=== PATIENT | male | born 1975 | race Caucasian/White ===

== ENCOUNTER 2017-06-28 12:28 | Emergency (ER) | payer OTHER ==
[2017-06-28 12:34] VITALS: BP 142/82; PULSE 78; RESP 20; TEMP 98.3; O2SAT 96
--- NOTE | 2017-06-28 13:08 | C.PDOC ---
History Of Present Illness 41 y/o male presents to the ED for evaluation of left leg, and left ankle pain. Patient states he fell off while getting off the bus 15 days ago, also tripped and fell again 3 days ago injuring his left leg. Pain aggravated by movement. Notes being seen by PMD, Dr. Bazan, who prescribed Aspirin which patient took without any improvement. Otherwise, denies any sensory changes, laceration, head injury, fever, dizziness, unsteady gait or any other associated symptoms at this time. Time Seen by Provider: 06/28/17 12:38 Chief Complaint (Nursing): Lower Extremity Problem/Injury History Per: Patient History/Exam Limitations: no limitations Onset/Duration Of Symptoms: Days (15) Current Symptoms Are (Timing): Still Present Recent travel outside of the [place]: No Additional History Per: Patient - Knee Description Of Injury: Fell - Ankle/Foot Description Of Injury: Fell. denies: Struck With Object, Laceration Past Medical History Reviewed: Historical Data, Nursing Documentation, Vital Signs Vital Signs: Last Vital Signs Temp 98.3 F 06/28/17 12:34 Pulse 78 06/28/17 12:34 Resp 20 06/28/17 12:34 BP 142/82 06/28/17 12:34 Pulse Ox 96 06/28/17 13:37 Family History: States: Unknown Family Hx - Social History Hx Alcohol Use: No Hx Substance Use: No - Immunization History Hx Tetanus Toxoid Vaccination: No Hx Influenza Vaccination: No Hx Pneumococcal Vaccination: No Review Of Systems Except As Marked, All Systems Reviewed And Found Negative. Constitutional: Negative for: Fever, Chills Musculoskeletal: Positive for: Leg Pain (left), Foot Pain (left) Neurological: Negative for: Weakness, Numbness Physical Exam - Physical Exam Appears: Non-toxic, No Acute Distress Skin: Warm, Dry, Ecchymosis (mild ecchymosis to anterior aspect of left lower leg) Head: Atraumatic, Normacephalic Eye(s): bilateral: Normal Inspection, EOMI Nose: Normal Oral Mucosa: Moist Neck: Normal ROM, Supple Chest: Symmetrical Respiratory: No Accessory Muscle Use Extremity: Normal ROM, Tenderness (mild tenderness to anterior aspect of left lower leg, and anterior aspect of left ankle), No Calf Tenderness, Capillary Refill (< 2 sec.), No Deformity, No Swelling Extremity: Bilateral: Normal Color And Temperature, Normal ROM Pulses: Left Dorsalis Pedis: Normal, Right Dorsalis Pedis: Normal Neurological/Psych: Oriented x3, Normal Speech, Normal Motor, Normal Sensation Gait: Steady ED Course And Treatment O2 Sat by Pulse Oximetry: 96 (RA) Pulse Ox Interpretation: Normal - Other Rad Left ankle x-ray X-Ray: Viewed By Me, Read By Radiologist Interpretation: FINDINGS: BONES: No acute displaced fracture. JOINTS: No dislocation. SOFT TISSUES: Mild soft tissue swelling. No evidence of radiopaque foreign body. OTHER FINDINGS: None. IMPRESSION: Mild soft tissue swelling. No acute displaced fracture, dislocation, or significant joint effusion identified. If symptoms persist or if there is clinical concern, x- ray follow-up in 7-10 days should be considered. Left tibia/fibula x-ray X-Ray: Viewed By Me, Read By Radiologist Interpretation: FINDINGS: BONES: No acute displaced fracture. JOINT SPACES: No dislocation. OTHER FINDINGS: Soft tissues appear unremarkable. No evidence of radiopaque foreign body. IMPRESSION: No acute displaced fracture, dislocation, or significant joint effusion identified. If symptoms persist, or if there is continued clinical concern, x-ray follow-up in 7-10 days should be considered. Progress Note: Left ankle/tibia/fibula x-ray ordered and reviewed. Ice was applied to affected area. On reassessment, patient is resting comfortably, and is in no acute distress. Micheal wrap was applied by document management technician. Crutches were given. Patient was instructed to follow up with physician/clinic in 1-2 days for further evaluation. Disposition - Disposition Referrals: Elvin Bar MD [Staff Provider] - Disposition: HOME/ ROUTINE Disposition Time: 13:21 Condition: STABLE Additional Instructions: Rest, ice and elevate the area. Follow up with bone doctor in 1-2 days. Return to ER if symptoms persist or worsen. Prescriptions: Naproxen [Naprosyn] 1 tab PO BID PRN #20 tab PRN Reason: Pain Instructions: Contusion in Adults (ED) Forms: [facility] (Thai) - Clinical Impression Clinical Impression: Contusion of leg - PA / SUPERVISOR CONTACT LENS / Resident Statement MD/DO has reviewed & agrees with the documentation as recorded. - Scribe Statement The provider has reviewed the documentation as recorded by the Scribe Kripal Woo All medical record entries made by the Scribe were at my direction and personally dictated by me. I have reviewed the chart and agree that the record accurately reflects my personal performance of the history, physical exam, medical decision making, and the department course for this patient. I have also personally directed, reviewed, and agree with the discharge instructions and disposition.
--- NOTE | 2017-06-28 13:34 | RAD ---
PROCEDURE: Left Ankle Radiographs. HISTORY: trauma COMPARISON: None available. FINDINGS: BONES: No acute displaced fracture. JOINTS: No dislocation. SOFT TISSUES: Mild soft tissue swelling. No evidence of radiopaque foreign body. OTHER FINDINGS: None. IMPRESSION: Mild soft tissue swelling. No acute displaced fracture, dislocation, or significant joint effusion identified. If symptoms persist or if there is clinical concern, x-ray follow-up in 7-10 days should be considered.
--- NOTE | 2017-06-28 13:35 | RAD ---
PROCEDURE: Radiographs of the left tibia and fibula. HISTORY: trauma COMPARISON: None available. TECHNIQUE: Frontal and lateral views obtained. FINDINGS: BONES: No acute displaced fracture. JOINT SPACES: No dislocation. OTHER FINDINGS: Soft tissues appear unremarkable. No evidence of radiopaque foreign body. IMPRESSION: No acute displaced fracture, dislocation, or significant joint effusion identified. If symptoms persist, or if there is continued clinical concern, x-ray follow-up in 7-10 days should be considered.
== END 2017-06-28 13:53 | disposition home or self-care (01) ==
LOC: C.ER 12:28
DX: S80.12XA Contusion of left lower leg, initial encounter (principal); W01.0XXA Fall on same level from slipping, tripping and stumbling without subsequent striking against object, initial encounter